=== PATIENT | female | born 2000 | race Caucasian/White ===

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

== ENCOUNTER 2020-07-15 00:05 | Emergency (ER) | payer MEDICAID, OTHER ==
[~2020-07-15] VITALS: Ht 162.6 cm; Wt 68.1 kg
[2020-07-15 00:45] VITALS: BP 121/85
[2020-07-15] MEDS ORDERED: MORPHINE SULFATE 4 MG/ML DISP.SYRIN. IV ONE (01:00)
[2020-07-15] MEDS ORDERED: ONDANSETRON PF 4 MG/2 ML VIAL. IVP ONE (01:00)
--- NOTE | 2020-07-15 01:04 | PHYS DOC ---
Past History Past Medical History: No Pertinent History Past Surgical History: No Surgical History Alcohol Use: None Drug Use: None Adult General Chief Complaint Chief Complaint: ABDOMINAL PAIN HPI HPI Patient is a 20-year-old female who presents with right upper quadrant pain. States she was doing well up until about 2 hours ago, and the pain in her right upper quadrant woke her up, is 8 out of 10, sharp in nature with radiation to the right side of her back. States she is never had anything like this before. States she had not eaten anything since the pain began. States she ate about an hour or so before going to bed. Denies any alcohol, drug use or history of heartburn/GERD. Denies any recent trauma, travels, illnesses, chest pain, shortness of breath, dysuria, hematuria or blood in the stool. States her mom had something similar years ago and had her gallbladder taken out. Review of Systems Review of Systems Review of systems otherwise unremarkable except noted in HPI Allergies Allergies Allergies Coded Allergies Type Severity Reaction Last Updated Verified No Known Drug Allergies 03/29/17 No Physical Exam Physical Exam Constitutional: Well developed, well nourished, no acute distress, non-toxic appearance. [] HENT: Normocephalic, atraumatic, bilateral external ears normal, oropharynx moist, no oral exudates, nose normal. [] Eyes: conjunctiva normal, no discharge. [] Neck: Normal range of motion, no tenderness, supple, no stridor. [] Cardiovascular:Heart rate regular rhythm, no murmur [] Lungs & Thorax: Bilateral breath sounds clear to auscultation [] Abdomen: soft, right upper quadrant tenderness, Jesus sign., no masses, no pulsatile masses. [] Skin: Warm, dry, no erythema, no rash. [] Back: no CVA tenderness. [] Extremities: No tenderness, no cyanosis, no clubbing, ROM intact, no edema. [] Neurologic: Alert and oriented X 3, normal motor function, normal sensory function, no focal deficits noted. [] Psychologic: Affect normal, judgement normal, mood normal. [] Current Patient Data Vital Signs Vital Signs Date Time Temp Pulse Resp B/P (MAP) Pulse Ox O2 Delivery O2 Flow Rate FiO2 07/15/20 00:45 98.2 71 21 121/85 (97) 99 Room Air Lab Results Laboratory Tests Test 07/15/20 00:51 POC Urine HCG, Qualitative hcg negative (Negative) EKG EKG [] Radiology/Procedures Radiology/Procedures []EXAM: RIGHT UPPER QUADRANT ULTRASOUND. HISTORY: Right upper quadrant pain. COMPARISON: None. FINDINGS: Sonographic evaluation of the right upper quadrant was performed. The liver appears normal in parenchymal echotexture. There are no focal lesions. The gallbladder is unremarkable without evidence of stones, wall thickening or pericholecystic fluid. There is no sonographic Jesus sign. The common duct measures 5 mm. Limited images of the visualized portions of the head of the pancreas reveal no abnormality. The right kidney measures 9.8 cm. Cortical thickness and echogenicity are preserved. There is no hydronephrosis. The visualized portions of the abdominal aorta and inferior vena cava are grossly patent and normal in caliber. IMPRESSION: 1. No cause for acute pain is identified sonographically. Electronically signed by: Luis Alfredo Mcpherson MD (07/15/2020 1:32 AM) [facility] FINDINGS: Lung windows through the visualized portions of the bases reveal no abnormality. Bone windows reveal no suspicious lesions. There is mild gallbladder wall thickening. There is no radiopaque cholelithiasis. There is no biliary dilatation. The liver, spleen, pancreas, adrenal glands and kidneys are unremarkable. There are no pathologically enlarged lymph nodes. The appendix is not inflamed. There is no small bowel obstruction. The uterus and ovaries are unremarkable by CT. IMPRESSION: 1. Mild gallbladder wall thickening is nonspecific. Correlate for cholecystitis, liver disease or systemic edematous states. Sonography could further evaluate. Electronically signed by: Luis Alfredo Mcpherson MD (07/15/2020 3:17 AM) [facility] Heart Score C/O Chest Pain: No Risk Factors: Risk Factors: DM, Current or recent (<one month) smoker, HTN, HLP, family hist ory of CAD, obesity. Risk Scores: Risk Factors: DM, Current or recent (<one month) smoker, HTN, HLP, family history of CAD, obesity. Course & Med Decision Making Course & Med Decision Making Patient is a 20-year-old female who presents with right upper quadrant pain and nausea Vital signs not concerning. Physical exam noted above. Patient placed on the monitor with IV access established. Given Zofran for nausea and morphine for pain. Laboratory analysis not concerning. CT of the abdomen pelvis not concerning. Ultrasound not concerning. On reassessment patient feeling better. Discussed all findings with patient advised follow-up with primary care physician on Friday. Gave strict return precautions to the ED. Patient grateful, verbalized understanding and agreed with plan of discharge. [] Dragon Disclaimer Dragon Disclaimer This electronic medical record was generated, in whole or in part, using a voice recognition dictation system. Departure Departure: Impression: Primary Impression: Abdominal pain Disposition: 01 DC HOME SELF CARE/HOMELESS Condition: GOOD Referrals: PCP,NO (PCP) Patient Instructions: Abdominal Pain (Nonspecific) Additional Instructions: Please read all the attached information. Over the next couple of days please eat a light and clear diet to allow some bowel rest. Please stay away from things such as spicy foods, fatty foods, coffee, alcohol and stick to things like water, Gatorade, chicken soup and crackers and dry bread. Please follow-up with your primary care physician first thing Friday morning to discuss your ED visit. Please come back to the ED with new or concerning symptoms. Scripts Ondansetron Hcl (ZOFRAN) 4 Mg Tablet 1 TAB PO TID PRN for NAUSEA, #6 TAB Prov: DESIRAE CARBAJAL MD 07/15/20 DESIRAE CARBAJAL MD Jul 15, 2020 01:04
[2020-07-15 01:26] LABS: BILIRUBIN,URINE NEG (NEG); CLARITY,URINE HAZY; COLOR,URINE STRAW; GLUCOSE,URINE NEG (NEG)
[2020-07-15 01:27] LABS: BACTERIA,URINE FEW /HPF (0-FEW); NITRITE,URINE NEG (NEG); RBC,URINE 0 /HPF (0-2); SQUAMOUS EPITHELIAL CELL,UR FEW /LPF; UROBILINOGEN,URINE 0.2 mg/dL (0.2 mg/dL); WBC,URINE OCC /HPF (0-4)
--- NOTE | 2020-07-15 01:34 | RAD ---
EXAM: RIGHT UPPER QUADRANT ULTRASOUND. HISTORY: Right upper quadrant pain. COMPARISON: None. FINDINGS: Sonographic evaluation of the right upper quadrant was performed. The liver appears normal in parenchymal echotexture. There are no focal lesions. The gallbladder is unremarkable without evidence of stones, wall thickening or pericholecystic fluid. There is no sonographic Jesus sign. The common duct measures 5 mm. Limited images of the visualize d portions of the head of the pancreas reveal no abnormality. The right kidney measures 9.8 cm. Cortical thickness and echogenicity are preserved. There is no hydr onephrosis. The visualized portions of the abdominal aorta and inferior vena cava are grossly patent and normal i n caliber. IMPRESSION: 1. No cause for acute pain is identified sonographically. Electronically signed by: Luis Alfredo Mcpherson MD (07/15/2020 1:32 AM) [facility]
[2020-07-15 01:44] LABS: HEMATOCRIT 42.1 % (36.0-47.0); HEMOGLOBIN 13.9 g/dL (12.0-15.5); RED BLOOD COUNT 4.7 x10^6/uL (3.50-5.40); RED CELL DISTRIBUTION WIDTH 13.4 % (11.5-14.5); WHITE BLOOD COUNT 9.7 x10^3/uL (4.0-11.0)
[2020-07-15 01:48] LABS: CALCIUM 9.2 mg/dL (8.5-10.1); CREATININE 0.8 mg/dL (0.6-1.0); GFR 89.7; POTASSIUM 3.5 mmol/L (3.5-5.1)
[2020-07-15 01:53] LABS: ALBUMIN 4.1 g/dL (3.4-5.0); ALBUMIN/GLOBULIN RATIO 1.2 (1.0-1.7); TOTAL BILIRUBIN 0.3 mg/dL (0.2-1.0); TOTAL PROTEIN 7.5 g/dL (6.4-8.2)
[2020-07-15] MEDS ORDERED: CONTRAST GIVEN. MC PRN (02:00)
[2020-07-15] MEDS ORDERED: IOHEXOL 300 MG/ML 75 ML VIAL. IV ONE (02:00)
--- NOTE | 2020-07-15 03:19 | RAD ---
EXAM: CT ABDOMEN/PELVIS WITH CONTRAST. HISTORY: Abdominal pain. TECHNIQUE: Computed tomography of the abdomen and pelvis was performed after the intravenous administ ration of iodinated contrast. One or more of the following individualized dose reduction techniques w ere utilized for this examination: 1. Automated exposure control. 2. Adjustment of the mA and/or kV according to patient size. 3. Use of iterative reconstruction technique. COMPARISON: None. FINDINGS: Lung windows through the visualized portions of the bases reveal no abnormality. Bone windo ws reveal no suspicious lesions. There is mild gallbladder wall thickening. There is no radiopaque cholelithiasis. There is no biliary dilatation. The liver, spleen, pancreas, adrenal glands and kidneys are unremarkable. There are no pathologically enlarged lymph nodes. The appendix is not inflamed. There is no small bowel obstruction. The uterus and ovaries are unremar kable by CT. IMPRESSION: 1. Mild gallbladder wall thickening is nonspecific. Correlate for cholecystitis, liver disease or sys temic edematous states. Sonography could further evaluate. Electronically signed by: Luis Alfredo Mcpherson MD (07/15/2020 3:17 AM) [facility]
[2020-07-15] MEDS ORDERED: ONDA4TAB7 PO (03:27)
== END 2020-07-15 03:30 | disposition home or self-care (01) ==
LOC: ER 00:05
DX: R10.11 Right upper quadrant pain (principal)
CPT/HCPCS: 36415; 74177; 76705; 80053; 81001; 81025; 85027; 96374; 96375; 99285; J2270; J2405; Q9967

== ENCOUNTER 2020-09-16 08:05 | Emergency (ER) | payer MEDICAID ==
[~2020-09-16] VITALS: Ht 162.6 cm; Wt 68.1 kg
[~2020-09-16 08:05] MED LIST: ONDA4TAB7 PO
[2020-09-16 08:17] VITALS: BP 118/79
[2020-09-16] MEDS ORDERED: KETOROLAC 60 MG/2 ML VIAL. IM ONE (08:30)
[2020-09-16] MEDS ORDERED: BENZOCAINE ONE 20% MUCOSAL SPRAY. MM (08:30)
[2020-09-16] MEDS ORDERED: KETO10TA PO (08:37)
[2020-09-16] MEDS ORDERED: HYDR-2155 PO (08:37)
--- NOTE | 2020-09-16 08:37 | PHYS DOC ---
Past History Past Medical History: No Pertinent History Past Surgical History: No Surgical History Alcohol Use: None Drug Use: None General Adult EDM: Chief Complaint: DENTAL PROBLEM HPI: HPI: Patient is a 20-year-old female coming in for right lower molar pain. Patient states she has a broken tooth, not back recently. As of the past week has been noticing increased pain and swelling of her gums. Was having difficulty sleeping last night. Has an appoint with a dentist to have it removed in 6 days. Has been taking Tylenol and ibuprofen without improvement. Patient states that her dentist had prescribed her to have with codeine which she states does not help. Denies any facial swelling or purulent drainage. No systemic complaints. Otherwise been well. Is currently breast-feeding. Review of Systems: Review of Systems: All other systems within normal limits except for as noted in the HPI Current Medications: Current Meds: Current Medications Medications (Trade) Dose Ordered Sig/Lashell Start Time Stop Time Status Last Admin Dose Admin Benzocaine (Hurricaine One) 1 spray 1X ONCE 09/16/20 08:30 09/16/20 08:31 UNV Ketorolac Tromethamine (Toradol Im) 30 mg 1X ONCE 09/16/20 08:30 09/16/20 08:31 UNV Allergies: Allergies: Allergies Coded Allergies Type Severity Reaction Last Updated Verified No Known Drug Allergies 03/29/17 No Physical Exam: PE: Constitutional: Well developed, well nourished, no acute distress, non-toxic appearance. [] HENT: Normocephalic, atraumatic, bilateral external ears normal, oropharynx moist, no oral exudates, nose normal. Large cavity in right lower molar, slight swelling erythema of gingiva without drainage. [] Eyes: PERRLA, EOMI, conjunctiva normal, no discharge. [] Neck: Normal range of motion, no tenderness, supple, no stridor. [] Cardiovascular:Heart rate regular rhythm, no murmur [] Lungs & Thorax: Bilateral breath sounds clear to auscultation [] Abdomen: Bowel sounds normal, soft, no tenderness, no masses, no pulsatile masses. [] Skin: Warm, dry, no erythema, no rash. [] Back: No tenderness, no CVA tenderness. [] Extremities: No tenderness, no cyanosis, no clubbing, ROM intact, no edema. [] Neurologic: Alert and oriented X 3, normal motor function, normal sensory function, no focal deficits noted. [] Psychologic: Affect normal, judgement normal, mood normal. [] EKG: EKG: [] Radiology/Procedures: Radiology/Procedures: [] Heart Score: C/O Chest Pain: No Risk Factors: Risk Factors: DM, Current or recent (<one month) smoker, HTN, HLP, family history of CAD, obesity. Risk Scores: Score 0 - 3: 2.5% MACE over next 6 weeks - Discharge Home Score 4 - 6: 20.3% MACE over next 6 weeks - Admit for Clinical Observation Score 7 - 10: 72.7% MACE over next 6 weeks - Early Invasive Strategies Course & Med Decision Making: Course & Med Decision Making Pertinent Labs and Imaging studies reviewed. (See chart for details) [] Dragon Disclaimer: Dragon Disclaimer: This electronic medical record was generated, in whole or in part, using a voice recognition dictation system. Departure Departure: Impression: Primary Impression: Infected dental caries Disposition: HOME / SELF CARE / HOMELESS Condition: STABLE Referrals: PCP,NO (PCP) Patient Instructions: Dental Abscess Additional Instructions: Do not take ibuprofen while taking ketorolac. Do not breast-feed for at least 8 hours after taking hydrocodone. May still take Tylenol, do not exceed 3 g/day. Scripts Amoxicillin/Potassium Clav (AUGMENTIN 875-125 TABLET) 1 Each Tablet 1 TAB PO BID for antibiotic for 10 Days, #20 TAB 0 Refills Prov: EULA DYER MD 09/16/20 Hydrocodone Bit/Acetaminophen (HYDROCODONE-APAP 5-325 ) 1 Each Tablet 1 TAB PO QHS PRN for PAIN for 3 Days, #3 TAB 0 Refills Prov: EULA DYER MD 09/16/20 Ketorolac Tromethamine (KETOROLAC TROMETHAMINE) 10 Mg Tablet 1 TAB PO TID PRN for PAIN for 5 Days, #15 TAB Prov: EULA DYER MD 09/16/20 EULA DYER MD September 16, 2020 08:37
[2020-09-16] MEDS ORDERED: AMOX1TAB61 PO (08:45)
== END 2020-09-16 08:30 | disposition home or self-care (01) ==
LOC: ER 08:05
DX: K02.9 Dental caries, unspecified (principal)
CPT/HCPCS: 99283

== ENCOUNTER 2021-07-05 19:58 | Emergency (ER) | payer MEDICAID ==
[~2021-07-05] VITALS: Ht 162.6 cm; Wt 65.4 kg
[~2021-07-05 19:58] MED LIST changes: +AMOX1TAB61 PO; +HYDR-2155 PO; +KETO10TA PO
[2021-07-05 20:13] VITALS: BP 107/62
[2021-07-05] MEDS ORDERED: AMOX1TAB11 PO (20:59)
--- NOTE | 2021-07-05 20:59 | PHYS DOC ---
Past History Past Medical History: No Pertinent History Additional Past Medical Histor: ear infections Past Surgical History: No Surgical History Alcohol Use: None Drug Use: None General Adult EDM: Chief Complaint: EARACHE/EAR PAIN HPI: HPI: Patient is a 21-year-old female who presents with right ear pain nasal congestion for the last few days. Patient reporting pain in her right ear. Denies taking anything prior to arrival. Denies fever. No shortness of breath or chest pain. Denies medical history. Review of Systems: Review of Systems: ROS At least 10 ROS systems have been reviewed and are negative except as documented in the HPI. General: Negative except as outlined in HPI above. Skin: Negative except as outlined in HPI above. HEENT: Negative except as outlined in HPI above. Neck: Negative except as outlined in HPI above. Respiratory: Negative except as outlined in HPI above.. Cardiovascular: Negative except as outlined in HPI above. Abdomen: Negative except as outlined in HPI above. : Negative except as outlined in HPI above. Back/MSK: Negative except as outlined in HPI above. Neuro: Negative except as outlined in HPI above. Psych: Negative except as outlined in HPI above. Allergies: Allergies: Allergies Coded Allergies Type Severity Reaction Last Updated Verified No Known Drug Allergies 07/05/21 No Physical Exam: PE: Constitutional: Well developed, well nourished, no acute distress, non-toxic appearance. [] HENT: bilateral external ears normal, right- TM red, bulging. no oral exudates, rhinorrhea Eyes: PERRLA, conjunctiva normal, no discharge. [] Neck: Normal range of motion, no tenderness, supple, no stridor. [] Cardiovascular:Heart rate regular rhythm, no murmur [] Lungs & Thorax: Bilateral breath sounds clear to auscultation [] Abdomen: Bowel sounds normal, soft, no tenderness, no masses, no pulsatile masses. [] Skin: Warm, dry, no erythema, no rash. [] Back: No tenderness, no CVA tenderness. [] Extremities: No tenderness, no cyanosis, no clubbing, ROM intact, no edema. [] Neurologic: Alert and oriented X 3, normal motor function, normal sensory function, no focal deficits noted. [] Psychologic: Affect normal, judgement normal, mood normal. [] Current Patient Data: Vital Signs: Vital Signs Date Time Temp Pulse Resp B/P (MAP) Pulse Ox O2 Delivery O2 Flow Rate FiO2 07/05/21 20:13 97.9 87 18 107/62 (77) 100 Room Air EKG: EKG: [] Radiology/Procedures: Radiology/Procedures: [] Heart Score: C/O Chest Pain: No Risk Factors: Risk Factors: DM, Current or recent (<one month) smoker, HTN, HLP, family history of CAD, obesity. Risk Scores: Score 0 - 3: 2.5% MACE over next 6 weeks - Discharge Home Score 4 - 6: 20.3% MACE over next 6 weeks - Admit for Clinical Observation Score 7 - 10: 72.7% MACE over next 6 weeks - Early Invasive Strategies Course & Med Decision Making: Course & Med Decision Making Pertinent Labs and Imaging studies reviewed. (See chart for details) [] 20-year-old female presents with right sided otalgia. TM is red and bulging. Sent home with a prescription. Patient given Motrin while in the ER. Advised patient to take antibiotic as directed and in full. Motrin at home to help with pain. Dragon Disclaimer: Dragon Disclaimer: This electronic medical record was generated, in whole or in part, using a voice recognition dictation system. Departure Departure: Impression: Primary Impression: Acute otitis media Qualified Codes: H66.90 - Otitis media, unspecified, unspecified ear Disposition: HOME / SELF CARE / HOMELESS Condition: STABLE Referrals: PCP,NO (PCP) Patient Instructions: Otitis Media, Adult, [id number] Additional Instructions: You were seen in the emergency room for right ear pain. I am sending home with a prescription. Take Motrin at home for pain. Follow-up with your PCP. Return to emergency room with worsening symptoms or concerns EMERGENCY DEPARTMENT GENERAL DISCHARGE INSTRUCTIONS Thank you for coming to [facility] (ED) today and trusting us with you care. We trust that you had a positivie experience in our Emergency Department. If you wish to speak to the department management, you may call the director at [phone]. YOUR FOLLOW UP INSTRUCTIONS ARE FOLLOWS: 1. Do you have a private Doctor? If you do not have a private doctor, please ask for a resource list of physicians or clinics that may be able to assist you with follow up care. 2. The Emergency Physician has interpreted your x-rays. The X-Ray specialist will also review them. If there is a change in the findings, you will be notified in 48 hours when at all possible. 3. A lab test or culture has been done, your results will be reviewed and you will be notified if you need a change in treatment. ADDITIONAL INSTRUCTIONS AND INFORMATION: 1. Your care today has been supervised by a physician who is specially trained in emergency care. Many problems require more than one evaluation for a complete diagnosis and treatment. We recommend that you schedule your follow up appointment as recommended to ensure complete treatment of you illness or injury. If you are unable to obtain follow up care and continue to have a problem, or if your condition worsens, we recommend that you return to the ED. 2. We are not able to safely determine your condition over the phone nor are we able to give sound medical advice over the phone. For these safety reasons, if you call for medical advice we will ask you to come to the ED for further evaluation. 3. If you have any questions regarding these discharge instructions please call the ED at [phone]. SAFETY INFORMATION: In the interest of safety, wellness, and injury prevention; we encourage you to wear your sealbelt, if you smoke; quite smoking, and we encourage family to use a protective helmet for bicycling and other sporting events that present an increased risk for head injury. IF YOUR SYMPTOMS WORSEN OR NEW SYMPTOMS DEVELOP, OR YOU HAVE CONCERNS ABOUT YOUR CONDITION; OR IF YOUR CONDITION WORSENS WHILE YOU ARE WAITING FOR YOUR FOLLOW UP APPOINTMENT; EITHER CONTACT YOUR PRIMARY CARE DOCTOR, THE PHYSICIAN WHOSE NAME AND NUMBER YOU WERE GIVEN, OR RETURN TO THE ED IMMEDIATELY. Scripts Amoxicillin/Potassium Clav (AMOX TR-K CLV 875-125 MG TAB) 1 Each Tablet 1 TAB PO BID for AOM for 7 Days, #14 TAB Prov: RONAK APPLE APRN 07/05/21 RONAK APPLE APRN Jul 05, 2021 20:59
[2021-07-05] MEDS ORDERED: IBUPROFEN 600 MG TABLET. PO ONE (21:30)
== END 2021-07-05 21:11 | disposition home or self-care (01) ==
LOC: ER 19:58
DX: H66.91 Otitis media, unspecified, right ear (principal)
CPT/HCPCS: 99283